=== PATIENT | female | born 1975 | race Caucasian/White ===

== ENCOUNTER 2017-10-09 11:46 | Emergency (ER) | payer OTHER, SELFPAY ==
[2017-10-09 11:54] VITALS: BP 141/99; PULSE 58; RESP 16; TEMP 36.9; O2SAT 99; BMI 31.1
--- NOTE | 2017-10-09 12:16 | ED_ITS ---
HPI - Dizziness <Latonya Johnson PA-C - Last Filed: 10/09/17 14:49> General Chief Complaint: Dizziness Stated Complaint: dizziness Time Seen by Provider: 10/09/17 12:14 Source: patient and family Mode of arrival: ambulatory Limitations: no limitations History of Present Illness HPI Narrative: This healthy 42-year-old female complains of onset of dizziness, which she describes as a spinning sensation, 12 days ago. She states that at times this can cause her to feel lightheaded or like she is tripping. She states that this worsens when she lays down, better when she has been up in 1 position for a bit. She cannot think of any other exacerbating or alleviating features besides movement. She says this seemed somewhat worse last night, but not acutely worse today than she has been. She states that she came in mainly due to her 's concern today. She has had some nausea which has not been associated with vomiting. She denies any vision change, headaches, weakness. She denies any recent sinus, upper respiratory symptoms, changing in hearing or ear ringing, fever or illness. Review of systems negative for any rectal bleeding or other +on systems review. She states she is completely healthy other than a history of headaches which usually resolve with [id number] medication and she does not have any headache currently. Related Data Home Medications Medication Instructions Recorded Confirmed cholecalciferol (vitamin D3) 1 cap PO DIRECTED 10/09/17 10/09/17 [Vitamin D3] naproxen sodium [Aleve] 220 mg PO PRN PRN 10/09/17 10/09/17 Previous Rx's Medication Instructions Recorded meclizine 25 mg PO QID PRN #30 tab 10/09/17 Allergies Allergy/AdvReac Type Severity Reaction Status Date / Time No Known Drug Allergies Allergy Verified 10/09/17 11:54 Review of Systems <Latonya Johnson PA-C - Last Filed: 10/09/17 14:49> Review of Systems All systems reviewed & are unremarkable except as noted in HPI and below Exam <Latonya Johnson PA-C - Last Filed: 10/09/17 14:49> Narrative Exam Narrative: GENERAL APPEARANCE: Patient sitting comfortably, in no distress. HEENT: PERRL, EOMI, no nystagmus, TMs are intact, slightly dull, normal oropharynx, no sinus TTP NECK: Supple LUNGS: Clear to auscultation bilaterally. HEART: Rate and rhythm regular without murmur, normal S1 and S2, no S3 or S4. ABDOMEN: Soft, NT, ND, + BS x 4 quadrants NEUROLOGIC: Alert and oriented, normal speech, and coordination. Cranial nerves III-XII grossly intact. Normal rapid alternating movements and finger- nose pointing. Negative Romberg with the eyes open and closed. Upper and lower extremity DTRs all 2+ throughout. Vertigo elicited with Hallpike maneuver and head turned to right > left, also elicited with rapid sit:stand MUSCULOSKELETAL: Strength is 5/5 throughout bilateral upper and lower extremities On repeat exam following meclizine patient is able to turn her head and move from sit to stand comfortably Initial Vital Signs Initial Vital Signs: Vital Signs Temperature 98.5 F 10/09/17 11:54 Pulse Rate 58 L 10/09/17 11:54 Respiratory Rate 16 10/09/17 11:54 Blood Pressure 141/99 H 10/09/17 11:54 Pulse Oximetry 99 10/09/17 11:54 <Alfonzo Cazares MD - Last Filed: 10/09/17 14:54> Initial Vital Signs Initial Vital Signs: Vital Signs Temperature 98.5 F 10/09/17 11:54 Pulse Rate 58 L 10/09/17 11:54 Respiratory Rate 16 10/09/17 11:54 Blood Pressure 141/99 H 10/09/17 11:54 Pulse Oximetry 99 10/09/17 11:54 Course <Latonya Johnson PA-C - Last Filed: 10/09/17 14:49> Orders Ordered: ED Orders 10/09/17 12:44 Complete Blood Count AUTO DIFF Stat 10/09/17 12:45 Basic Metabolic Panel Stat Discontinued Medications Meclizine HCl (Antivert) 25 mg PO NOW ONE Stop: 10/09/17 12:45 Last Admin: 10/09/17 12:52 Dose: 25 mg Vital Signs - 8 hr 10/09/17 11:54 10/09/17 13:14 10/09/17 14:04 Temperature 98.5 F Pulse Rate 58 L 86 Respiratory Rate 16 16 Blood Pressure 141/99 H Blood Pressure [Left Arm] 131/73 H 106/64 Pulse Oximetry 99 100 <Alfonzo Cazares MD - Last Filed: 10/09/17 14:54> Orders Ordered: ED Orders 10/09/17 12:44 Complete Blood Count AUTO DIFF Stat 10/09/17 12:45 Basic Metabolic Panel Stat Discontinued Medications Meclizine HCl (Antivert) 25 mg PO NOW ONE Stop: 10/09/17 12:45 Last Admin: 10/09/17 12:52 Dose: 25 mg Vital Signs - 8 hr 10/09/17 11:54 10/09/17 13:14 10/09/17 14:04 Temperature 98.5 F Pulse Rate 58 L 86 Respiratory Rate 16 16 Blood Pressure 141/99 H Blood Pressure [Left Arm] 131/73 H 106/64 Pulse Oximetry 99 100 MDM - Dizziness <Latonya Johnson PA-C - Last Filed: 10/09/17 14:49> Lab Data Result diagrams: 10/09/17 12:44 10/09/17 12:45 Lab Results 10/09/17 10/09/17 Range/Units 12:44 12:45 WBC 8.0 (4.5-11.0) X10^3/uL RBC 4.85 (4.0-5.2) X10^6/uL Hgb 15.0 (12.0-16.0) g/dL Hct 43.6 (36-46) % MCV 90.0 (80-100) fL MCH 31.0 (26-34) PG MCHC 34.4 (30-36) % RDW 13.1 (11.6-14.8) % Plt Count 309 (150-400) X10^3/uL Neut % (Auto) 68.2 (50-75) % Lymph % (Auto) 23.0 L (25-40) % [place] % (Auto) 5.5 (3-14) % Eos % (Auto) 2.2 (2-4) % Baso % (Auto) 1.1 (0-2) % Neut # (Auto) 5400 (9391-7561) /uL Sodium 138 (137-145) mmol/L Potassium 3.9 (3.4-5.1) mmol/L Chloride 104.0 (98-107) mmol/L Carbon Dioxide 27.0 (22-32) mmol/L BUN 13.0 (7-17) mg/dL Creatinine 0.50 L (0.52-1.04) mg/dL Estimated GFR > 60.0 (>60) mL/min BUN/Creatinine Ratio 26.0 H (6-22) Glucose 121 H (70-100) mg/dL Calcium 8.9 (8.4-10.2) mg/dL <Alfonzo Cazares MD - Last Filed: 10/09/17 14:54> Lab Data Lab Results 10/09/17 10/09/17 Range/Units 12:44 12:45 WBC 8.0 (4.5-11.0) X10^3/uL RBC 4.85 (4.0-5.2) X10^6/uL Hgb 15.0 (12.0-16.0) g/dL Hct 43.6 (36-46) % MCV 90.0 (80-100) fL MCH 31.0 (26-34) PG MCHC 34.4 (30-36) % RDW 13.1 (11.6-14.8) % Plt Count 309 (150-400) X10^3/uL Neut % (Auto) 68.2 (50-75) % Lymph % (Auto) 23.0 L (25-40) % [place] % (Auto) 5.5 (3-14) % Eos % (Auto) 2.2 (2-4) % Baso % (Auto) 1.1 (0-2) % Neut # (Auto) 5400 (9689-9022) /uL Sodium 138 (137-145) mmol/L Potassium 3.9 (3.4-5.1) mmol/L Chloride 104.0 (98-107) mmol/L Carbon Dioxide 27.0 (22-32) mmol/L BUN 13.0 (7-17) mg/dL Creatinine 0.50 L (0.52-1.04) mg/dL Estimated GFR > 60.0 (>60) mL/min BUN/Creatinine Ratio 26.0 H (6-22) Glucose 121 H (70-100) mg/dL Calcium 8.9 (8.4-10.2) mg/dL Discharge Plan Departure Patient Disposition: Home, Self-Care Clinical Impression: Vertigo Discharge Date/Time: 10/09/17 14:23 Interventions: ED Discharge Assessment Last Done: 10/09/17 14:23 Instructions: DI for Benign Paroxysmal Positional Vertigo Activity Restrictions/Additional Instructions: Your exam today is most consistent with positional vertigo. It seems to be worse on the right side when you were tested. Try taking the meclizine every 4- 6 hours for now, but remember a can make you sleepy and not to drive (you should not drive until this is better regardless). Return as we talked about if you have new or acutely worsening symptoms so we can do further testing. Otherwise, talked with your insurance today about getting set up with a PCP who can do a referral for physical therapy for you. Let them know that you were in the emergency room and need follow-up. This may improve on its own in the interim Prescriptions: New meclizine 25 mg tablet 25 mg PO QID PRN (Reason: vertigo) Qty: 30 RF: 0 No Action naproxen sodium [Aleve] 220 mg Tablet 220 mg PO PRN PRN (Reason: Pain, Mild) RF: 0 cholecalciferol (vitamin D3) [Vitamin D3] 2,000 unit Capsule 1 cap PO DIRECTED RF: 0 Referrals: Provider,Conversion [Non-Staff] - <Alfonzo Cazares MD - Last Filed: 10/09/17 14:54> Cosign ED Attending Cosignature Attestation: I was the attending of record and available in the ED. I attest to the documentation recorded and agree with assessment and plan.
[2017-10-09] MEDS: MECLIZINE HCL 12.5 MG TABLET 25 MG PO (12:52)
[2017-10-09 13:12] LABS: Add Manual Diff / Slide Review NO; Basophils Percent Auto 1.1 % (0-2); Eosinophils Percent Auto 2.2 % (2-4); Hematocrit 43.6 % (36-46); Mean Corpuscular HGB Conc 34.4 % (30-36); Monocytes Percent Auto 5.5 % (3-14); Neutrophils Absolute Auto 5400 /uL (3000-5900); Neutrophils Percent Auto 68.2 % (50-75); Platelet Count 309 X10^3/uL (150-400); Red Blood Cell Count 4.85 X10^6/uL (4.0-5.2); Red Cell Distribution Width 13.1 % (11.6-14.8)
[2017-10-09 13:14] VITALS: BP 131/73
[2017-10-09 13:24] LABS: Calcium 8.9 mg/dL (8.4-10.2); Estimated Glomerular Filt Rate > 60.0 mL/min (>60); Glucose 121 mg/dL (70-100); HEMOLYSIS 28 (0-50); Potassium 3.9 mmol/L (3.4-5.1); Sodium 138 mmol/L (137-145)
[2017-10-09 14:04] VITALS: BP 106/64; PULSE 86; RESP 16; O2SAT 100
== END 2017-10-09 14:23 | disposition home or self-care (01) ==
PROVIDERS: Emergency Provider Internal Medicine
DX: R42 Dizziness and giddiness (principal)
CPT/HCPCS: 36415; 80048; 85025; 99282; 99283

== ENCOUNTER → 2018-02-09 15:00 | Outpatient (CLI) | payer OTHER, SELFPAY | DX: Z23 Encounter for immunization (principal) | CPT/HCPCS: 90471; 90686 ==

== ENCOUNTER → 2018-09-08 07:10 | Outpatient (CLI) | payer OTHER, SELFPAY ==
[2018-09-08 08:39] LABS: Add Manual Diff / Slide Review NO; Basophils Absolute Auto 100 /uL (0-100); Basophils Percent Auto 0.6 % (0-2); Eosinophils Absolute Auto 300 /uL (0-450); Eosinophils Percent Auto 3.3 % (2-4); Hematocrit 44.4 % (36-46); Hemoglobin 15.2 g/dL (12.0-16.0); Lymphocytes Absolute Auto 2200 /uL (1100-4500); Lymphocytes Percent Auto 25.7 % (25-40); Mean Corpuscular HGB Conc 34.3 % (30-36); Mean Corpuscular Hemoglobin 31.2 PG (26-34); Mean Corpuscular Volume 90.9 fL (80-100); Monocytes Absolute Auto 700 /uL (0-900); Monocytes Percent Auto 8.4 % (3-14); Neutrophils Absolute Auto 5300 /uL (1500-7000); Platelet Count 331 X10^3/uL (150-400); Red Blood Cell Count 4.89 X10^6/uL (4.0-5.2); White Blood Cell Count 8.6 X10^3/uL (4.5-11.0)
[2018-09-08 09:13] LABS: Alanine Aminotransferase 21 IU/L (9-52); Albumin 4.4 g/dL (3.5-5.0); Albumin Globulin Ratio 1.6 (1.0-2.8); Alkaline Phosphatase 29 U/L (38-126); Aspartate Aminotransferase 19 IU/L (14-36); BUN Creatinine Ratio 17.1 (6-22); Bilirubin Total 0.5 mg/dL (0.2-1.3); Blood Urea Nitrogen 12 mg/dL (7-17); Calcium 9.3 mg/dL (8.4-10.2); Carbon Dioxide 26 mmol/L (22-32); Chloride 101 mmol/L (98-107); Cholesterol 239 mg/dL (140-199); Estimated Glomerular Filt Rate > 60.0 mL/min (>60); Globulin 2.8 g/dL (1.7-4.1); Glucose 100 mg/dL (70-100); HDL Cholesterol 57 mg/dL (40-60); HEMOLYSIS < 15 (0-50); LDL Cholesterol Calculated 163 mg/dL (<100); Sodium 137 mmol/L (137-145); Total Protein 7.2 g/dL (6.3-8.2); Triglycerides 94 mg/dL (35-150)
[2018-09-08 09:43] LABS: TSH w/ Reflex to FT4 3.08 uIU/mL (0.47-4.68)
== END ==
PROVIDERS: Visit Provider Nurse Practitioner
DX: Z00.00 Encounter for general adult medical examination without abnormal findings (principal)
CPT/HCPCS: 36415; 80053; 80061; 84443; 85025

== ENCOUNTER → 2018-09-15 07:39 | Outpatient (CLI) | payer OTHER, SELFPAY ==
--- NOTE | 2018-09-15 | DI.MG.S_ITS ---
BILATERAL DIGITAL SCREENING MAMMOGRAM 3D/2D WITH CAD: 09/15/2018 CLINICAL: Baseline exam. Routine screening. Family history of breast cancer. No prior exams were available for comparison. The tissue of both breasts is heterogeneously dense. This may lower the sensitivity of mammography. Current study was also evaluated with a Computer Aided Detection (CAD) system. No significant masses, calcifications, or other findings are seen in either breast. IMPRESSION: NEGATIVE There is no mammographic evidence of malignancy. A 1 year screening mammogram is recommended. This exam was interpreted at Station ID: [id number]. NOTE: For mammograms, a report in lay terms will be sent to the patient. Approximately 15% of breast malignancies will not be visualized mammographically. In the management of a palpable breast mass, a negative mammogram must not discourage biopsy of a clinically suspicious lesion. Electronically Signed By: Harpal mojica/gemma:09/15/2018 17:58:29 letter sent: Normal Exam ACR BI-RADS Category 1: Negative [id number]
== END ==
PROVIDERS: Visit Provider Nurse Practitioner
DX: Z12.31 Encounter for screening mammogram for malignant neoplasm of breast (principal); Z80.3 Family history of malignant neoplasm of breast
CPT/HCPCS: 77063; 77067

== ENCOUNTER → 2019-02-10 15:30 | Outpatient (CLI) | payer OTHER, SELFPAY | PROVIDERS: PCP Nurse Practitioner | DX: Z23 Encounter for immunization (principal) | CPT/HCPCS: 90471; 90686 ==

== ENCOUNTER → 2019-10-13 13:39 | Outpatient (CLI) | payer OTHER, SELFPAY ==
--- NOTE | 2019-10-13 | DI.US.S_ITS ---
PROCEDURE: US PELVIC COMPLETE INDICATIONS: DUB TECHNIQUE: Real-time scanning was performed of the pelvic organs, with image documentation. Additional endovaginal scanning was necessary due to incomplete visualization of the adnexal and endometrial structures by transabdominal scanning. COMPARISON: None. FINDINGS: Transabdominal scanning: Limited scanning through the kidneys shows no hydronephrosis. No pathologic free abdominal or pelvic fluid. Endovaginal scanning: Uterus: Uterus is normal in size at 9.7 x 5.7 x 6.8 cm. The endometrium measures 12 mm in combined thickness. Ovaries: Right ovary measures 2.7 x 2.4 x 2.3 cm. There is a 1.6 cm presumed physiologic follicle. Left ovary not sonographically identified. IMPRESSION: Left ovary not sonographically identified. Otherwise, grossly unremarkable examination as above Dictated by: Armando Dee M.D. on 10/13/2019 at 16:04 Approved by: Armando Dee M.D. on 10/13/2019 at 16:05
== END ==
PROVIDERS: PCP Nurse Practitioner; Referring Provider Obstetrics & Gynecology; Visit Provider Obstetrics & Gynecology
DX: N92.1 Excessive and frequent menstruation with irregular cycle (principal); N94.6 Dysmenorrhea, unspecified
CPT/HCPCS: 76830; 76856

== ENCOUNTER → 2019-10-15 07:58 | Outpatient (CLI) | payer OTHER, SELFPAY ==
[2019-10-15 09:55] LABS: Add Manual Diff / Slide Review NO; Basophils Absolute Auto 0 /uL (0-100); Basophils Percent Auto 0.4 % (0-2); Eosinophils Absolute Auto 200 /uL (0-450); Eosinophils Percent Auto 2.7 % (2-4); Hematocrit 45.5 % (36-46); Hemoglobin 15.6 g/dL (12.0-16.0); Lymphocytes Absolute Auto 1900 /uL (1100-4500); Lymphocytes Percent Auto 25.5 % (25-40); Mean Corpuscular HGB Conc 34.3 % (30-36); Mean Corpuscular Hemoglobin 31.3 PG (26-34); Mean Corpuscular Volume 91.1 fL (80-100); Monocytes Absolute Auto 600 /uL (0-900); Monocytes Percent Auto 7.5 % (3-14); Neutrophils Absolute Auto 4800 /uL (1500-7000); Neutrophils Percent Auto 63.9 % (50-75); Platelet Count 298 X10^3/uL (150-400); White Blood Cell Count 7.5 X10^3/uL (4.5-11.0)
[2019-10-15 10:01] LABS: Alanine Aminotransferase 23 IU/L (<35); Albumin 4.7 g/dL (3.5-5.0); Albumin Globulin Ratio 1.6 (1.0-2.8); Alkaline Phosphatase 27 U/L (38-126); Aspartate Aminotransferase 28 IU/L (14-36); BUN Creatinine Ratio 26.3 (6-22); Bilirubin Total 0.5 mg/dL (0.2-1.3); Blood Urea Nitrogen 15 mg/dL (7-17); Calcium 9.5 mg/dL (8.4-10.2); Carbon Dioxide 27 mmol/L (22-32); Chloride 101 mmol/L (98-107); Estimated Glomerular Filt Rate > 60.0 mL/min (>60); Glucose 109 mg/dL (70-100); HEMOLYSIS < 15 (0-50); Potassium 4.4 mmol/L (3.4-5.1); Sodium 136 mmol/L (137-145); Total Protein 7.7 g/dL (6.3-8.2)
[2019-10-15 10:02] LABS: Glucose Fasting 109 mg/dL (70-100)
[2019-10-15 10:18] LABS: Free T3, Triiodothyronine Free 2.62 pg/mL (2.77-5.27); Free T4, Direct Thyroxine 1.19 ng/dL (0.78-2.19)
[2019-10-15 10:19] LABS: Vitamin D 25 Hydroxy (D3) 34.7 ng/mL (30.0-100.0)
[2019-10-15 10:32] LABS: Thyroid Stimulating Hormone 1.67 uIU/mL (0.47-4.68)
[2019-10-15 10:47] LABS: Glucose 1 Hour 181 mg/dL (70-170)
[2019-10-15 11:39] LABS: Glucose Tol Interpretation INTERPRETATION
[2019-10-15 12:10] LABS: Glucose 2 Hour 90 mg/dL (70-140)
[2019-10-16 07:45] LABS: Insulin Level Total 7.9 uIU/mL (2.6-24.9)
[2019-10-20 16:14] LABS: Testosterone % Fr + Wkly bound 10.2 % (3.0-18.0); Testosterone Fr+Wkly bound 3.6 ng/dL (0.0-9.5)
== END ==
PROVIDERS: PCP Nurse Practitioner; Referring Provider Obstetrics & Gynecology; Visit Provider Obstetrics & Gynecology
DX: N92.1 Excessive and frequent menstruation with irregular cycle (principal); N94.6 Dysmenorrhea, unspecified; E55.9 Vitamin D deficiency, unspecified
CPT/HCPCS: 36415; 80053; 82306; 82951; 82952; 83525; 84403; 84439; 84443; 84481; 85025

== ENCOUNTER → 2020-02-16 | Outpatient (CLI) | payer OTHER, SELFPAY | PROVIDERS: PCP Nurse Practitioner; Referring Provider Internal Medicine; Visit Provider Internal Medicine | DX: Z23 Encounter for immunization (principal) | CPT/HCPCS: 90471; 90686 ==

== ENCOUNTER → 2020-05-17 11:30 | Outpatient (CLI) | payer OTHER, SELFPAY ==
[2020-05-17] MEDS: COVID-19 VACC(MODERNA-1)/PF 100 MCG/0.5 ML VIAL IM (11:37)
== END ==
PROVIDERS: PCP Nurse Practitioner; Visit Provider Internal Medicine
DX: Z23 Encounter for immunization (principal)
CPT/HCPCS: 0011A; 91301

== ENCOUNTER → 2020-06-13 08:08 | Outpatient (CLI) | payer OTHER, SELFPAY ==
[2020-06-13] MEDS: COVID-19 VACC #2, MRNA(MOD) 100 MCG/0.5 ML VIAL IM (08:11)
== END ==
PROVIDERS: PCP Nurse Practitioner; Visit Provider Internal Medicine
DX: Z23 Encounter for immunization (principal)
CPT/HCPCS: 0012A; 91301

== ENCOUNTER → 2020-09-03 09:53 | Outpatient (CLI) | payer OTHER, SELFPAY ==
[2020-09-03 11:41] LABS: COVID19 -Nasal RAPID Negative (Negative)
== END ==
PROVIDERS: PCP Nurse Practitioner; Visit Provider Student in an Organized Health Care Education/Training Program
DX: Z20.822 Contact with and (suspected) exposure to COVID-19 (principal)
CPT/HCPCS: 87635

== ENCOUNTER 2020-09-05 11:46 | Day surgery (SDC) | payer OTHER, SELFPAY ==
--- NOTE | 2020-09-05 | PATH_ITS ---
[facility] Accession Number: [id number] . 01 Material submitted: . colon - SIGMOID COLON POLYP . 01 Clinical history: . SDC . 02 Diagnosis: Sigmoid Colon, Polyp, Biopsy: Hyperplastic polyp. MRV 09/11/2020 1148 Local . 02 Electronically signed: . Mary Crowley MD, Pathologist NPI- [id number] . 01 Gross description: . SIGMOID COLON POLYP: Received in formalin is 1 fragment(s) of uribe, soft tissue measuring 0.3 x 0.2 x 0.2 cm submitted entirely in 1 cassette(s) /MAMTA 09/06/2020 1847 Local . 02 Pathologist provided ICD-10: K63.5 . 02 CPT . 262889 Performed at: [address] [facility] [address] [id number] MD Harpal Abdi MD Phone: [phone] Performed at: 02 [facility] [address] [place], [place] [id number] MD Mary Crowley MD Phone: [phone]
--- NOTE | 2020-09-05 08:20 | PM.HP.1 ---
History of Present Illness History of Present Illness Date Patient Seen: 09/05/20 Chief complaint: SDC Narrative: 45-year-old female here for colon cancer screening Patient History Medical History (Updated 09/28/18 @ 20:34 by Yen Trevino) Abnormal Pap smear of cervix (~1998) Chicken pox (~1978) Chronic headaches Fractures Positive PPD (~1996) Psoriasis (~2016) Shoulder pain (~2017) Vertigo (~2017) Surgical History (Updated 09/28/18 @ 20:34 by Yen Trevino) Anesthesia H/O abdominoplasty (~2005) Tubal ligation status Family & Social History Family History (Updated 09/28/18 @ 20:45 by Yen Trevino) Mother Anemia Father Diabetes mellitus Grandfather History of heart disease Grandfather Sepsis Grandmother Liver problem Tobacco & Substance use: Smoking Status Current every day smoker alcohol intake current Meds Home Medications and Allergies Home Medications Medication Instructions Recorded Confirmed Type cholecalciferol (vitamin D3) 1 cap PO DIRECTED 10/09/17 09/05/20 History [Vitamin D3] naproxen sodium [Aleve] 220 mg PO PRN PRN 10/09/17 09/05/20 History Allergies Allergy/AdvReac Type Severity Reaction Status Date / Time nickel Allergy Blister Verified 09/05/20 12:14 Exam Narrative Exam Narrative: General: Patient is obese, not in apparent distress Cardiovascular: Regular rate and rhythm, no murmurs, rubs, or gallops; no evidence of edema; no palpable abdominal aortic aneurysm Gastrointestinal: Normoactive bowel sounds, soft, nontender, nondistended, no rebound tenderness, no hepatosplenomegaly, no evidence of hernia Assessment & Plan Assessment & Plan narrative: 45-year-old female here for colon cancer screening Regarding the procedure(s), the risks and potential complications, benefits, and alternatives (including not doing the procedure) were discussed with the patient. The risks include but are not limited to bleeding, splenic injury, infection, perforation which may require surgical intervention, missed lesions, and adverse reactions to sedative medicines. After a question and answer period, the patient agreed to proceed with the procedure(s) and gives informed consent.
[2020-09-05 12:20] VITALS: BP 141/96; PULSE 109; RESP 16; TEMP 36.9; O2SAT 100; BMI 30.2
[2020-09-05] MEDS: SODIUM CHLORIDE 0.9% 1,000 ML 70 ML IV (12:30)
--- NOTE | 2020-09-05 13:06 | PM.OP.ENDO ---
Operative Date/Time/Diagnoses Date of procedure: 09/05/20 Procedure Notes Procedure in detail: Surgeon: Douglas Scott MD Procedure: Colonoscopy with polypectomy Preoperative diagnosis: CRC screening Postoperative diagnosis: Sigmoid polyp status post polypectomy, grade 1 internal hemorrhoids Medications: Conscious sedation using 5 mg IV of Midazolam and 100 mcg IV of Fentanyl Preanesthesia Assessment An H and P was performed/updated and the Px?s ASA class is 2. The procedure was discussed in detail with the patient. The potential risks and complications including infection, bleeding, missed lesions, perforation, need for surgery in case of perforation, prolonged hospital stay, and were explained. A brief question and answer period was allotted and once all questions were answered, informed consent was obtained. The patient was brought back to the procedure room and placed on standard monitoring. The patient?s vital signs were monitored continuously throughout the entire procedure. Prior to starting, a timeout was performed to confirm the patient?s identity, allergies, medications, and procedure. Procedure in detail The patient was placed in left lateral decubitus position and once adequate sedation was obtained a GEOVANNA was performed. The digital rectal examination did not reveal any palpable lesions. The tip of the colonoscope was placed in the anal canal and advanced without difficulty all the way to the cecum which was identified by the appendiceal orifice and the ileocecal valve. Careful examination of all garcia of the colon was performed with irrigation of any residual stool. In the sigmoid colon, there was note of a 2 mm sessile polyp. This removed by means of cold Jumbo forceps. Resection retrieval was complete with minimal bleeding. Retroflexion was performed in the rectum which revealed grade 1 internal hemorrhoids The patient tolerated the procedure well and will be brought back to the recovery area to be discharged once criteria are met. The prep was judged to be good and adequate to identify polyps less than 5 mm. The withdrawal time was 9 minutes. The total physician intraservice time was 13 minutes. Complications There were no complications and estimated blood loss was minimal. Recommendations: Resume previous diet Continue outPx medications Follow up pathology results Repeat colonoscopy in 5 or 7 or 10 years depending on pathology results An emergency contact number was given to the patient for any complications related to the procedure
[2020-09-05] MEDS: MIDAZOLAM 5 MG/5 ML VIAL IV (13:11)
[2020-09-05] MEDS: fentaNYL 250 MCG/5 ML INJ IV (13:12)
[2020-09-05 13:27] VITALS: BP 140/100; PULSE 88; RESP 14; TEMP 36.5; O2SAT 99
[2020-09-05 13:32] VITALS: BP 127/80; PULSE 82; RESP 12; O2SAT 99
[2020-09-05 13:37] VITALS: BP 116/77; PULSE 89; RESP 15; TEMP 36.6; O2SAT 99
[2020-09-05 13:50] VITALS: BP 127/84; PULSE 81; RESP 15; TEMP 36.6; O2SAT 99
[2020-09-05 14:01] VITALS: BP 123/84; PULSE 93; RESP 16; TEMP 36.6; O2SAT 100
--- NOTE | 2020-09-05 14:02 | SUR.PHASEII ---
Pt up and ambulating gait steady, drinking gingerale without problems, iv dcd earlier and site clear. All dc instructions given and pt verbalizes understanding. Pt in good spirits.
== END 2020-09-05 14:10 | disposition home or self-care (01) ==
PROVIDERS: PCP Nurse Practitioner; Referring Provider Internal Medicine Gastroenterology; Visit Provider Internal Medicine Gastroenterology
PROC: 0DJD8ZZ Inspection of Lower Intestinal Tract, Via Natural or Artificial Opening Endoscopic (ICD-10-PCS; CPT 45378; principal; 2020-09-05 13:00)
DX: Z12.11 Encounter for screening for malignant neoplasm of colon (principal); F17.210 Nicotine dependence, cigarettes, uncomplicated; K64.0 First degree hemorrhoids; K63.5 Polyp of colon
CPT/HCPCS: 45380; J2250; J3010

== ENCOUNTER → 2021-02-26 | Outpatient (CLI) | payer OTHER, SELFPAY | PROVIDERS: PCP Nurse Practitioner; Referring Provider Internal Medicine; Visit Provider Internal Medicine | DX: Z23 Encounter for immunization (principal) | CPT/HCPCS: 90471; 90686 ==

== ENCOUNTER → 2021-03-22 08:38 | Outpatient (CLI) | payer OTHER, SELFPAY ==
[2021-03-22] MEDS: COVID-19 VACC #3, MRNA(MOD) 50 MCG/0.25 ML VIAL IM (08:44)
== END ==
PROVIDERS: PCP Nurse Practitioner; Visit Provider Internal Medicine
DX: Z23 Encounter for immunization (principal)
CPT/HCPCS: 0013A; 91301